=== PATIENT | male | born 2005 | race African-American/Black ===

== ENCOUNTER 2025-01-25 18:21 | Emergency (ER) | payer OTHER ==
[2025-01-25] MEDS: HYDROmorphone 0.5 MG/0.5 ML Syringe IVPUSH PRN (18:38)
[2025-01-25] MEDS: Lidocaine 1% 50 ML MDV INJECT ONE (18:39)
[2025-01-25] MEDS: Diphtheria,Pertussis(Acell),Tetanus Vaccine 0.5 ML Syringe IM ONE (18:39)
[2025-01-25 18:40] LABS: HEMATOCRIT 39.6 % (42.0-52.0); HEMOGLOBIN 13.1 g/dL (14.0-18.0); MEAN CORPUSCULAR HEMOGLOBIN 26.6 pg (28.0-32.0); MEAN CORPUSCULAR HGB CONC 33.1 g/dL (32.0-36.0); MEAN CORPUSCULAR VOLUME 80.5 fL (83.0-99.0); MEAN PLATELET VOLUME 9.1 fL (9.4-12.4); PLATELET COUNT,PLT 255 K/uL (150-400); RED BLOOD CELL COUNT 4.92 M/uL (4.52-5.90); WHITE BLOOD CELL COUNT,WBC 10.34 K/uL (3.9-11.3)
[2025-01-25 18:50] LABS: INR 1.01 (0.86-1.11)
[2025-01-25 19:20] LABS: BAND ABSOLUTE MAN 0.21; BAND PERCENT MAN 2 %; EOSINOPHILS ABSOLUTE MAN 0.31 K/uL (0.00-0.45); EOSINOPHILS PERCENT MAN 3 % (0-6); LYMPHOCYTES ABSOLUTE MAN 5.58 K/uL (1.00-4.80); LYMPHOCYTES PERCENT MAN 54 % (24-44); MONOCYTES ABSOLUTE MAN 1.03 K/uL (0.00-0.80); MONOCYTES PERCENT MAN 10 % (0-8); SEG NEUTROPHILS ABSOLUTE MAN 3.21 K/uL (1.80-7.70); SEG NEUTROPHILS PERCENT MAN 31 % (41-71)
[2025-01-25 19:21] LABS: A/G RATIO 1.3 (0.9-1.6); ALBUMIN 3.9 g/dL (3.4-5.0); BILIRUBIN TOTAL 0.3 mg/dL (0.2-1.0); CALCIUM 8.4 mg/dL (8.5-10.1); CARBON DIOXIDE,CO2 26.6 mmol/L (21.0-32.0); CREATININE 1.1 mg/dL (0.8-1.3); EST CRCL DRUG DOSING (CG) 119.45 mL/min; POTASSIUM,K 4.1 mmol/L (3.5-5.1); PROTEIN TOTAL,TP 6.8 g/dL (6.4-8.2)
[2025-01-25] MEDS: Acetaminophen 500 MG Tab PO ONE (19:29)
[2025-01-25] MEDS: Ketorolac 30 MG/ML SDV IVPUSH ONE (19:30)
[2025-01-25] MEDS: HYDROmorphone 1 MG/ML Syringe IVPUSH ONE (19:30)
[2025-01-25] MEDS: Lactated Ringers 1,000 ML IV SCH ×2 (19:55→20:36)
[2025-01-25] MEDS: Bacitracin Oint 28.35 GM Tube TOP ONE (20:42)
== END 2025-01-25 23:38 | disposition other institution (70) ==
LOC: MW.ED 18:21
DX: T20.22XA Burn of second degree of lip(s), initial encounter (principal); T20.20XA Burn of second degree of head, face, and neck, unspecified site, initial encounter; T26.02XA Burn of left eyelid and periocular area, initial encounter; T21.25XA Burn of second degree of buttock, initial encounter
CPT/HCPCS: 16020; 36415; 80053; 85025; 85610; 85730; 90471; 90715; 96361; 96374; 96375; 96376; 99285; A9270; J1171; J1885; J2003; J7120; 99284